=== PATIENT | female | born 1960 | race Caucasian/White ===

== ENCOUNTER 2024-07-14 13:50 | Day surgery (SDC) | payer MEDICARE, OTHER ==
[2024-07-14] MEDS ORDERED: Depo-Medrol 40 MG/ML IM ONE (13:51)
[2024-07-14] MEDS ORDERED: BUPIVACAINE 0.5% VIAL IJ ONE (13:51)
[2024-07-14] MEDS ORDERED: propofoL IV ONE (15:17)
--- NOTE | 2024-07-14 17:02 | XRAY ---
Indication: Left hip and bilateral greater trochanter bursa injection. Intraoperative fluoroscopy provided for 19 seconds. 3 digital spot image submitted for interpretation demonstrates needle tips projecting lateral to left femur neck and left/right greater trochanters. Small amount of contrast injected for all needle tip placement. Correlate with intraoperative findings/report.
--- NOTE | 2024-07-14 17:05 | XRAY ---
19 seconds of fluoroscopy was used in surgery for a left intra-articular hip and bilateral greater trochanteric bursa injection.
== END 2024-07-14 16:05 | disposition home or self-care (01) ==
LOC: SDC-PAIN 13:50
PROVIDERS: ATTEND Psychiatry & Neurology Pain Medicine
DX: M16.12 Unilateral primary osteoarthritis, left hip (principal)
CPT/HCPCS: 20610; 73521; 77002; J2704; Q9966

== ENCOUNTER 2025-01-18 09:41 | Observation (INO) | payer MEDICARE, OTHER ==
--- NOTE | 2025-01-18 10:21 | ERPHSYRPT ---
- History of Present Illness Time Seen by Provider: 01/18/25 10:10 Historian: patient Exam Limitations: no limitations Patient Subjective Stated Complaint: PT. STATES, "I'VE BEEN seeing [facility] UNDER DR. Joni DENNIS. I was having some chest pains and she ran some tests, she didn't like my ekg or the swelling inmy legs, she scheduled me for a stress test in January and started me on Isosorbide daily. Also my lt carotid > 50% blocked. However, I've been batteling colette horses in my legs for a week. This morning I woke up feeling kind of dizzy and nauseated with numbness and tingling in my left arm. Some chest discomfort on the left and in the middle of back." Triage Nursing Assessment: Pt. arrives via W/C, A&Ox3, Skin P/W/D, Resp. even unlabored., No edema noted. Able to move all four extremeties, No neuro defecits. Physician History: Patient is a 64-year-old female former smoker with history of glaucoma angina cardiac dysrhythmia hypertension hyperlipidemia, left carotid stenosis GERD fibromyalgia presents to our ED for evaluation of left-sided chest pain radiating to her back associated with dizziness and nausea. Feels her arms are tingling. Patient advises she has been experiencing leg cramps also. Symptoms are progressive. Symptoms are moderate in intensity. No specific worsening or improving factors. at bedside. They voiced no other complaints or concerns at this time. Portions of this note were created with voice recognition technology. There may be grammatical, spelling, punctuation or sound alike errors Timing/Duration: today Activities at Onset: none Quality: aching Location: substernal Chest Pain Radiation: arm, back Severity of Pain-Max: moderate Severity of Pain-Current: mild Modifying Factors: Improves With: nothing Associated Symptoms: nausea, dizziness Prior Chest Pain/Cardiac Workup: no prior chest pain Nitro Today/Relief: no nitro taken today Aspirin Treatment Today: no aspirin today Allergies/Adverse Reactions: Penicillins Allergy (Severe, Verified 01/18/25 10:52) levofloxacin [From Levaquin] Allergy (Verified 03/12/13 19:29) redness, swelling at iv site mold Allergy (Verified 01/18/25 11:45) Yeast Allergy (Verified 01/18/25 11:45) clindamycin Adverse Reaction (Verified 01/18/25 10:52) Itching ethyl alcohol [From Nozin Nasal Hat Blocking Operator] Adverse Reaction (Verified 01/18/25 11:45) lisinopril Adverse Reaction (Verified 01/18/25 11:45) metronidazole [From Flagyl] Adverse Reaction (Verified 01/18/25 11:03) polymyxin B Adverse Reaction (Verified 01/18/25 11:45) tobramycin Adverse Reaction (Verified 01/18/25 11:45) Home Medications: Aspirin 81 mg PO DAILY 01/18/25 [History] Bimatoprost 0.01% [Lumigan 0.01% 2.5 ml] 2.5 ml OP HS 01/18/25 [History] Hypromellose [Systane Gel] 10 gm OP HS 01/18/25 [History] Isosorbide Mononitrate 30 mg [Imdur 30 MG] 15 mg PO DAILY 01/18/25 [History] Lansoprazole 15 mg PO DAILY PRN PRN 01/18/25 [History] Loratadine [Allergy Relief] 10 mg PO HS 01/18/25 [History] Spironolactone 100 mg PO BID 01/18/25 [History] estradioL [Estradiol] 1 gm VAG DIRECTIONS UNKNOWN 01/18/25 [History] estradioL [Estradiol] 1 mg PO DAILY 01/18/25 [History] Hx Tetanus, Diphtheria Vaccination/Date Given: Yes Hx Influenza Vaccination/Date Given: No Hx Pneumococcal Vaccination/Date Given: No Travel Risk - International Travel Have you traveled outside of the country in past 3 weeks: No - Emerging Infectious Disease Are you exhibiting symptoms associated with any current EIDs: No - Review of Systems All Other Systems: Reviewed and Negative - Past Medical History Pertinent Past Medical History: Yes Neurological History: No Pertinent History ENT History: Glaucoma Cardiac History: Angina, Arrhythmia, High Cholesterol, Hypertension Respiratory History: Pneumonia Endocrine Medical History: No Pertinent History Musculoskeletal History: Fibromyalgia GI Medical History: GERD History: No Pertinent History Psycho-Social History: No Pertinent History Female Reproductive Disorders: No Pertinent History - Past Surgical History Past Surgical History: Yes Neuro Surgical History: No Pertinent History Cardiac: No Pertinent History Respiratory: No Pertinent History Gastrointestinal: Cholecystectomy Genitourinary: No Pertinent History Musculoskeletal: No Pertinent History Female Surgical History: Hysterectomy Other Surgical History: tonsillectomy - Social History Smoking Status: Former smoker Exposure to second hand smoke: No Drug Use: none - Social Determinants of Health Will the patient participate in the screening: Declined to provide - Nursing Vital Signs Nursing Vital Signs: Initial Vital Signs Temperature 97.9 F 01/18/25 09:41 Pulse Rate 89 01/18/25 09:41 Respiratory Rate 18 01/18/25 09:41 Blood Pressure 157/87 01/18/25 09:41 O2 Sat by Pulse Oximetry 99 01/18/25 09:41 Pain Scale Pain Intensity 4 - Physical Exam General Appearance: no apparent distress, alert Eye Exam: PERRL/EOMI, eyes nml inspection Ears, Nose, Throat Exam: normal ENT inspection, moist mucous membranes Neck Exam: normal inspection, full range of motion Respiratory Exam: normal breath sounds, lungs clear, airway intact, No respiratory distress Cardiovascular Exam: regular rate/rhythm, normal heart sounds Gastrointestinal/Abdomen Exam: soft, No tenderness, No mass Back Exam: normal inspection, No CVA tenderness, No vertebral tenderness Extremity Exam: normal inspection, normal range of motion Neurologic Exam: alert, oriented x 3, cooperative, normal mood/affect, sensation nml, No motor deficits Skin Exam: normal color, warm, dry Lymphatic Exam: No adenopathy SpO2 Interpretation: normal SpO2: 99 O2 Delivery: Room Air - Course Nursing assessment & vital signs reviewed: Yes EKG Interpreted by Me: RATE ([id number]), Sinus Rhythm, NORMAL AXIS, NORMAL INTERVALS, NORMAL QRS - Radiology Exams Chest X-ray Interpretation: Teleradiologist Report (Normal heart lungs and bony thorax) Ordered Tests: Active Orders 24 hr Category Date Time Status Service Desk Specialist STAT Care 01/18/25 10:15 Active EKG-ER Only STAT Care 01/18/25 10:14 Active IV Insertion STAT Care 01/18/25 10:14 Active Pulse Oximetry (ED) STAT Care 01/18/25 10:14 Active CHEST 1 VIEW (PORTABLE) Stat Exams 01/18/25 11:58 Completed CBC W DIFF Stat Lab 01/18/25 10:15 Completed CMP Stat Lab 01/18/25 10:15 Completed D-DIMER QUANTITATIVE Stat Lab 01/18/25 10:15 Completed MAGNESIUM Stat Lab 01/18/25 10:15 Completed NT PRO BNPII Stat Lab 01/18/25 10:15 Completed TROPONIN Q4H Lab 01/18/25 10:15 Completed TROPONIN Q4H Lab 01/18/25 13:15 Received TROPONIN Q4H Lab 01/18/25 18:15 Ordered UA W/RFX UR CULTURE Stat Lab 01/18/25 10:15 Completed Transfer Order Routine Transfer 01/18/25 Ordered Medication Summary Discontinued Medications Generic Name Dose Route Start Last Admin Trade Name Freq PRN Reason Stop Dose Admin Aspirin 324 mg 01/18/25 10:23 01/18/25 10:40 Aspirin 81 Mg Tab.Chew PO 01/18/25 10:24 324 mg STAT ONE Administration Aspirin Confirm 01/18/25 10:39 Aspirin 81 Mg Tab.Chew Administered 01/18/25 10:40 Dose 324 mg .ROUTE .STK-MED ONE Acetaminophen 100 mls @ 400 mls/hr 01/18/25 12:49 01/18/25 13:22 Ofirmev IV 01/18/25 13:03 Infused STAT ONE Infusion Acetaminophen Confirm 01/18/25 13:03 Ofirmev Administered 01/18/25 13:04 Dose 100 mls @ ud IV .STK-MED ONE Nitroglycerin 1 gm 01/18/25 10:23 01/18/25 10:40 Nitroglycerin 1 Gm Packet TOP 01/18/25 10:24 1 gm STAT ONE Administration Nitroglycerin Confirm 01/18/25 10:40 Nitroglycerin 1 Gm Packet Administered 01/18/25 10:41 Dose 1 gm .ROUTE .STK-MED ONE Lab/Rad Data: Laboratory Result Diagrams 01/18/25 10:15 01/18/25 10:15 Laboratory Results 01/18/25 01/18/25 01/18/25 Range/Units Unknown 10:15 10:15 WBC (3.98-10.04) x10^3/uL RBC (3.93-5.22) x10^6/uL Hgb (11.2-15.7) g/dL Hct (34.1-44.9) % MCV (79.4-94.8) fL MCH (25.6-32.2) pg MCHC (32.2-35.5) g/dL RDW (11.7-14.4) % Plt Count (182-369) x10^3/uL MPV (9.4-12.3) fL Gran % (34.0-71.1) % Immature Gran % (Auto) (0.001-0.429) % Nucleat RBC Rel Count (0.00-0.2) % Eos # (Auto) (0.04-0.36) x10^3/uL Immature Gran # (Auto) (0.001-0.031) x10^3u/L Absolute Lymphs (auto) (1.18-3.74) x10^3/uL Absolute Monos (auto) (0.24-0.86) x10^3/uL Absolute Nucleated RBC (0.00-0.012) x10^3u/L Lymphocytes % (19.3-51.7) % Monocytes % (4.7-12.5) % Eosinophils % (0.7-5.8) % Basophils % (0.1-1.2) % Absolute Granulocytes (1.56-6.13) x10^3/uL Basophils # (0.01-0.08) x10^3/uL D-Dimer (0.0-0.50) mg/L Sodium (135-145) mmol/L Potassium (3.5-5.1) mmol/L Chloride (98-107) mmol/L Carbon Dioxide (22-30) mmol/L Anion Gap (5-15) MEQ/L BUN (7-17) mg/dL Creatinine (0.52-1.04) mg/dL Estimated GFR ML/MIN Glucose (74-106) mg/dL Calcium (8.4-10.2) mg/dL Magnesium (1.6-2.3) mg/dL Total Bilirubin (0.2-1.3) mg/dL AST (14-36) U/L ALT (0-35) U/L Alkaline Phosphatase (38-126) U/L Troponin I < 0.012 (0.000-0.033) ng/mL NT-Pro-B Natriuret Pep (<300) pg/mL Serum Total Protein (6.3-8.2) g/dL Albumin (3.5-5.0) g/dL Urine Color Yellow (Yellow) Urine Appearance Clear (Clear) Urine pH 7.0 (4.6-8.0) Ur Specific Isom <=1.005 (1.005-1.030) Urine Protein Negative (Negative) Urine Glucose (UA) Negative (Negative) mg/dL Urine Ketones Negative (Negative) Urine Blood Negative (Negative) Urine Nitrite Negative (Negative) Urine Bilirubin Negative (Negative) Urine Urobilinogen 0.2 (0.2) mg/dL Ur Leukocyte Esterase Negative (Negative) U Hyaline Cast (Auto) NONE SEEN (0-2) /LPF Urine Microscopic RBC 0-2 (0-5) /HPF Urine Microscopic WBC 0-2 (0-5) /HPF Ur Epithelial Cells None Seen (None Seen) /HPF Urine Bacteria None Seen (None Seen) /HPF Urine Culture Reflexed NO (NO) Influenza Type A Ag NEGATIVE (NEGATIVE) Influenza Type B Ag NEGATIVE (NEGATIVE) RSV (PCR) NEGATIVE (NEGATIVE) SARS-CoV-2 (PCR) NEGATIVE (NEGATIVE) Slides for Path Review 01/18/25 01/18/25 01/18/25 Range/Units 10:15 10:15 10:15 WBC 16.5 H (3.98-10.04) x10^3/uL RBC 4.04 (3.93-5.22) x10^6/uL Hgb 12.7 (11.2-15.7) g/dL Hct 38.1 (34.1-44.9) % MCV 94.3 (79.4-94.8) fL MCH 31.4 (25.6-32.2) pg MCHC 33.3 (32.2-35.5) g/dL RDW 13.0 (11.7-14.4) % Plt Count 292 (182-369) x10^3/uL MPV 12.6 H (9.4-12.3) fL Gran % 68.3 (34.0-71.1) % Immature Gran % (Auto) 0.9 H (0.001-0.429) % Nucleat RBC Rel Count 0.0 (0.00-0.2) % Eos # (Auto) 0.25 (0.04-0.36) x10^3/uL Immature Gran # (Auto) 0.15 H (0.001-0.031) x10^3u/L Absolute Lymphs (auto) 3.02 (1.18-3.74) x10^3/uL Absolute Monos (auto) 1.69 H (0.24-0.86) x10^3/uL Absolute Nucleated RBC 0.00 (0.00-0.012) x10^3u/L Lymphocytes % 18.3 L (19.3-51.7) % Monocytes % 10.3 (4.7-12.5) % Eosinophils % 1.5 (0.7-5.8) % Basophils % 0.7 (0.1-1.2) % Absolute Granulocytes 11.25 H (1.56-6.13) x10^3/uL Basophils # 0.12 H (0.01-0.08) x10^3/uL D-Dimer 0.39 (0.0-0.50) mg/L Sodium 136 (135-145) mmol/L Potassium 4.7 (3.5-5.1) mmol/L Chloride 101 (98-107) mmol/L Carbon Dioxide 26 (22-30) mmol/L Anion Gap 12.8 (5-15) MEQ/L BUN 21 H (7-17) mg/dL Creatinine 0.82 (0.52-1.04) mg/dL Estimated GFR 79.3 ML/MIN Glucose 95 (74-106) mg/dL Calcium 10.2 (8.4-10.2) mg/dL Magnesium 1.9 (1.6-2.3) mg/dL Total Bilirubin 0.20 (0.2-1.3) mg/dL AST 19 (14-36) U/L ALT 13 (0-35) U/L Alkaline Phosphatase 63 (38-126) U/L Troponin I (0.000-0.033) ng/mL NT-Pro-B Natriuret Pep 95.8 (<300) pg/mL Serum Total Protein 7.4 (6.3-8.2) g/dL Albumin 4.3 (3.5-5.0) g/dL Urine Color (Yellow) Urine Appearance (Clear) Urine pH (4.6-8.0) Ur Specific Isom (1.005-1.030) Urine Protein (Negative) Urine Glucose (UA) (Negative) mg/dL Urine Ketones (Negative) Urine Blood (Negative) Urine Nitrite (Negative) Urine Bilirubin (Negative) Urine Urobilinogen (0.2) mg/dL Ur Leukocyte Esterase (Negative) U Hyaline Cast (Auto) (0-2) /LPF Urine Microscopic RBC (0-5) /HPF Urine Microscopic WBC (0-5) /HPF Ur Epithelial Cells (None Seen) /HPF Urine Bacteria (None Seen) /HPF Urine Culture Reflexed (NO) Influenza Type A Ag (NEGATIVE) Influenza Type B Ag (NEGATIVE) RSV (PCR) (NEGATIVE) SARS-CoV-2 (PCR) (NEGATIVE) Slides for Path Review YES - Progress Progress: improved Air Movement: good Progress Note: Patient's heart score is 4. 01/18/25 12:49 Patient complained of a headache likely secondary to nitro paste application. IV Tylenol/Ofirmev ordered for headache. 01/18/25 13:12 Case discussed with hospitalist Dr. Parks depth admission to observation at 1:06 PM. Plan of care discussed with patient. She agrees to admission at [facility] for further evaluation and treatment. Patient is a 64-year-old female former smoker with history of glaucoma angina cardiac dysrhythmia hypertension hyperlipidemia, left carotid stenosis GERD fibromyalgia presents to our ED for evaluation of left-sided chest pain radiating to her back associated with dizziness and nausea. Physical exam nonremarkable. No active muscle cramping during my evaluation. Laboratory workup shows negative D-dimer. Chest x-ray shows no acute findings. Patient does have a significant leukocytosis. At this point there is no clear etiology for the leukocytosis. However patient will require hospitalization for further evaluation and treatment in light of elevated heart score. Plan of care discussed with patient. She agrees to admission at [facility] for further evaluation and treatment. History obtained from patient. Differential diagnosis includes acute coronary syndrome, PE, pneumothorax, aortic dissection Complexity of problems addressed is moderate acute complicated. No critical care time. Complex of data reviewed and analyzed is extensive. Test ordered chest reviewed results analyzed interpreted and correlated clinically with history and physical exam. Risk of complication and or risk of morbidity/mortality of patient management is high. Patient requires hospitalization for further evaluation and treatment. Vital stable. Time spent admit patient is approximately 15 minutes. Plan of care established for shared decision making. No social determinants of health present to impede follow-up. Portions of this note were created with voice recognition technology. There may be grammatical, spelling, punctuation or sound alike errors . 01/18/25 13:30 Blood Culture(s) Obtained: No Antibiotics given: No Counseled pt/family regarding: lab results, diagnosis, rad results - Departure Departure Disposition: Observation Clinical Impression: Chest pain, Acute coronary syndrome, Leukocytosis Condition: Stable Critical Care Time: No Referrals: JACQUELIN CONTRERAS NP [Primary Care Provider, [facility]] - Follow up/PCP as directed
[2025-01-18] MEDS ORDERED: BABY ASPIRIN 81 MG CHEW ONE (10:39)
[2025-01-18] MEDS: BABY ASPIRIN 81 MG CHEW PO ONE (10:40)
[2025-01-18] MEDS: NITRO-BID 2% UD PACKETS TOP ONE (10:40)
[2025-01-18] MEDS ORDERED: NITRO-BID 2% UD PACKETS ONE (10:40)
[2025-01-18 10:41] LABS: BASOPHIL % 0.7 % (0.1-1.2); Basophil (Absolute #) 0.12 x10^3/uL (0.01-0.08); Eosinophil (Absolute #) 0.25 x10^3/uL (0.04-0.36); Hematocrit 38.1 % (34.1-44.9); Hemoglobin 12.7 g/dL (11.2-15.7); IMMATURE GRAN # 0.15 x10^3u/L (0.001-0.031); IMMATURE GRAN % 0.9 % (0.001-0.429); Lymphocyte (Absolute #) 3.02 x10^3/uL (1.18-3.74); Mean Corpuscular Hemoglobin 31.4 pg (25.6-32.2); Mean Corpuscular Hgb Concent. 33.3 g/dL (32.2-35.5); Monocyte (Absolute #) 1.69 x10^3/uL (0.24-0.86); NUCLEATED RBC # 0.00 x10^3u/L (0.00-0.012); NUCLEATED RBC % 0.0 % (0.00-0.2); Platelet Count 292 x10^3/uL (182-369); Red Blood Count 4.04 x10^6/uL (3.93-5.22); White Blood Count 16.5 x10^3/uL (3.98-10.04)
[2025-01-18 10:54] LABS: Glucose, Urine Negative (Negative); Protein,Urine Dip Negative (Negative); RBC 0-2 /HPF (0-5); WBC 0-2 /HPF (0-5)
[2025-01-18 11:17] LABS: INFLUENZA A NEGATIVE (NEGATIVE); INFLUENZA B NEGATIVE (NEGATIVE); RESPIRATORY SYNCTIAL VIRUS NEGATIVE (NEGATIVE); SARS-CoV-2 Xpert Express NEGATIVE (NEGATIVE)
[2025-01-18 11:24] LABS: Slide Review 1 YES
[2025-01-18 11:32] LABS: Calcium 10.2 mg/dL (8.4-10.2); Carbon Dioxide 26.0 mmol/L (22-30); Creatinine 1 0.82 mg/dL (0.52-1.04); EST GLOMERULAR FILTRATION RATE 79.3 ML/MIN; Glucose 95.0 mg/dL (74-106); NT PRO BNPII 95.8 pg/mL (<300); Potassium 4.7 mmol/L (3.5-5.1); SGOT/AST 19.0 U/L (14-36); SGPT/ALT 13.0 U/L (0-35); Total Protein 7.4 g/dL (6.3-8.2)
--- NOTE | 2025-01-18 12:33 | XRAY ---
Indication: Pain. Comparison: December 05, 2023 Portable chest again demonstrates normal heart, lungs, and bony thorax with incidental tiny right apical calcified granuloma.
[2025-01-18] MEDS ORDERED: OFIRMEV 100 ML IV ONE (13:03)
[2025-01-18] MEDS: OFIRMEV 100 ML IV ONE (13:06)
--- NOTE | 2025-01-18 14:45 | PCM.HP ---
History of Present Illness - Chief Complaint Chief Complaint: Chest pain, acute coronary syndrome Date: 01/18/25 History of Present Illness: is a 64 year old female 64-year-old female, former smoker, with past medical history significant for glaucoma, angina, cardiac dysrhythmia, hypertension, hyperlipidemia, known left carotid stenosis >50%, GERD, and fibromyalgia. She presented to the ED with progressive left-sided chest pain radiating to her back, associated with dizziness, nausea, and tingling in both upper extremities. She additionally reported recurrent leg cramps over the past week. Her symptoms were of moderate intensity, without clear provoking or relieving factors other than nitro. She follows with [facility] under Dr. Joni Horn; at a recent outpatient visit she had an abnormal EKG and lower extremity swelling, was started on daily isosorbide, and is scheduled for a stress test in January. Patient also endorses muscle cramps. On arrival, vital signs were stable. EKG performed in the ED revealed normal sinus rhythm at 87 bpm, with normal axis, intervals, and QRS duration per ED physician read. Chest x-ray showing no acute cardiopulmonary process. Laboratory studies demonstrated leukocytosis,with WBC at 16.5 though no fever or infectious source was evident. UA and CXR negative. Respiratory panel negative. D-dimer was negative, lowering suspicion for venous thromboembolism. Troponin x 2 WNL. BNP WNL. Electrolytes were reviewed given history of cramping, but no acute derangements were documented at time of evaluation. Given her chest pain presentation in the context of multiple cardiovascular risk factors and known carotid stenosis, her HEART score is elevated, and admission for observation and further workup was recommended. Patient received nitro and ASA in ED. - Review of Systems Constitutional: Fatigue Eyes: No Symptoms Ears, Nose, & Throat: No Symptoms Respiratory: No Symptoms Cardiac: Chest Pain Abdominal/Gastrointestinal: Nausea Genitourinary Symptoms: No Symptoms Musculoskeletal: Back Pain Skin: No Symptoms Neurological: Dizziness Psychological: No Symptoms Endocrine: No Symptoms Hematologic/Lymphatic: No Symptoms Immunological/Allergic: No Symptoms Medications & Allergies Home Medications: Home Medication List Aspirin 81 mg PO DAILY 01/18/25 [History Confirmed 01/18/25] Bimatoprost 0.01% [Lumigan 0.01% 2.5 ml] 2.5 ml OP HS 01/18/25 [History Confirmed 01/18/25] Hypromellose [Systane Gel] 10 gm OP HS 01/18/25 [History Confirmed 01/18/25] Isosorbide Mononitrate 30 mg [Imdur 30 MG] 15 mg PO DAILY 01/18/25 [History Confirmed 01/18/25] Lansoprazole 15 mg PO DAILY PRN PRN 01/18/25 [History Confirmed 01/18/25] Loratadine [Allergy Relief] 10 mg PO HS 01/18/25 [History Confirmed 01/18/25] Spironolactone 50 mg PO BID 01/18/25 [History Confirmed 01/18/25] estradioL [Estradiol] 1 gm VAG DIRECTIONS UNKNOWN 01/18/25 [History Confirmed 01/18/25] estradioL [Estradiol] 1 mg PO DAILY 01/18/25 [History Confirmed 01/18/25] Allergies/Adverse Reactions: Allergies Allergy/AdvReac Type Severity Reaction Status Date / Time Penicillins Allergy Severe Verified 01/18/25 14:37 levofloxacin [From Levaquin] Allergy redness, Verified 01/18/25 14:37 swelling at iv site mold Allergy Verified 01/18/25 14:37 sulfamethoxazole Allergy Verified 01/18/25 14:37 Yeast Allergy Verified 01/18/25 14:37 clindamycin AdvReac Itching Verified 01/18/25 14:37 ethyl alcohol AdvReac Verified 01/18/25 14:37 [From Nozin Nasal [employer] Mixer] lisinopril AdvReac Verified 01/18/25 14:37 metronidazole [From Flagyl] AdvReac Verified 01/18/25 14:37 polymyxin B AdvReac Verified 01/18/25 14:37 tobramycin AdvReac Verified 01/18/25 14:37 - Past Medical History Past Medical History: Yes Neurological History: No Pertinent History ENT History: Other Cardiac History: Angina, Arrhythmia, High Cholesterol, Hypertension Respiratory History: Pneumonia Endocrine Medical History: No Pertinent History Musculoskelatal History: Fibromyalgia GI Medical History: Diverticulitis, Diverticulosis, GERD, Gallbladder Disease History: No Pertinent History Pyscho-Social History: No Pertinent History Reproductive Disorders: Fibroids, Other Comment: HTN in eyes. Heart Palpitations. bladder sling /prolapsed vagina - Past Surgical History Past Surgical History: Yes Neuro Surgical History: No Pertinent History Cardiac History: No Pertinent History Respiratory Surgery: No Pertinent History GI Surgical History: Cholecystectomy Genitourinary Surgical Hx: No Pertinent History Musculskeletal Surgical Hx: No Pertinent History Female Surgical History: Hysterectomy Other Surgical History: tonsillectomy Significant Family History: heart disease, cancer, diabetes, hypertension, stroke - Social History Smoking Status: Former smoker Exposure to second hand smoke: No Alcohol: None Drug Use: none - Social Determinants of Health Will the patient participate in the screening: Yes Do you worry about a steady place to live?: No Do you have any problems with any of the following?: No known problems In the past 12 months,have you had to go without utilities?: No Have you or anyone in your house had to go without enough: No Transportation Issues: No Has anyone in your support network made you feel unsafe?: No Does the patient want assistance with any of the above?: No - Physical Exam Vital Signs: Vital Signs - 24 hr Temp Pulse Resp BP BP BP Pulse Ox 01/18/25 13:58 96.7 F 70 18 115/58 94 L 01/18/25 13:35 99 01/18/25 13:00 76 11 L 122/77 96 01/18/25 12:30 84 16 114/68 97 01/18/25 12:00 72 14 128/77 96 01/18/25 11:30 76 20 124/60 97 01/18/25 11:00 73 16 125/82 97 01/18/25 10:41 80 18 142/77 98 01/18/25 10:30 81 20 142/77 97 01/18/25 10:14 98 01/18/25 10:00 77 21 154/87 96 01/18/25 09:41 97.9 F 89 18 157/87 99 General Appearance: no apparent distress Neurologic Exam: alert, oriented x 3, cooperative Eye Exam: PERRL/EOMI Ears, Nose, Throat Exam: normal ENT inspection Neck Exam: normal inspection Respiratory Exam: normal breath sounds, lungs clear Cardiovascular Exam: regular rate/rhythm, normal heart sounds Gastrointestinal/Abdomen Exam: soft, normal bowel sounds Pelvic Exam: not done Rectal Exam: deferred Back Exam: normal inspection Extremity Exam: normal inspection Skin Exam: normal color Results - Labs Lab/Micro Results: Lab Results-Last 24 Hours 01/18/25 01/18/25 01/18/25 Range/Units 10:15 10:15 10:15 WBC 16.5 H (3.98-10.04) x10^3/uL RBC 4.04 (3.93-5.22) x10^6/uL Hgb 12.7 (11.2-15.7) g/dL Hct 38.1 (34.1-44.9) % MCV 94.3 (79.4-94.8) fL MCH 31.4 (25.6-32.2) pg MCHC 33.3 (32.2-35.5) g/dL RDW 13.0 (11.7-14.4) % Plt Count 292 (182-369) x10^3/uL MPV 12.6 H (9.4-12.3) fL Gran % 68.3 (34.0-71.1) % Immature Gran % (Auto) 0.9 H (0.001-0.429) % Nucleat RBC Rel Count 0.0 (0.00-0.2) % Eos # (Auto) 0.25 (0.04-0.36) x10^3/uL Immature Gran # (Auto) 0.15 H (0.001-0.031) x10^3u/L Absolute Lymphs (auto) 3.02 (1.18-3.74) x10^3/uL Absolute Monos (auto) 1.69 H (0.24-0.86) x10^3/uL Absolute Nucleated RBC 0.00 (0.00-0.012) x10^3u/L Lymphocytes % 18.3 L (19.3-51.7) % Monocytes % 10.3 (4.7-12.5) % Eosinophils % 1.5 (0.7-5.8) % Basophils % 0.7 (0.1-1.2) % Absolute Granulocytes 11.25 H (1.56-6.13) x10^3/uL Basophils # 0.12 H (0.01-0.08) x10^3/uL D-Dimer 0.39 (0.0-0.50) mg/L Sodium 136 (135-145) mmol/L Potassium 4.7 (3.5-5.1) mmol/L Chloride 101 (98-107) mmol/L Carbon Dioxide 26 (22-30) mmol/L Anion Gap 12.8 (5-15) MEQ/L BUN 21 H (7-17) mg/dL Creatinine 0.82 (0.52-1.04) mg/dL Estimated GFR 79.3 ML/MIN Glucose 95 (74-106) mg/dL Calcium 10.2 (8.4-10.2) mg/dL Magnesium 1.9 (1.6-2.3) mg/dL Total Bilirubin 0.20 (0.2-1.3) mg/dL AST 19 (14-36) U/L ALT 13 (0-35) U/L Alkaline Phosphatase 63 (38-126) U/L Troponin I (0.000-0.033) ng/mL NT-Pro-B Natriuret Pep 95.8 (<300) pg/mL Serum Total Protein 7.4 (6.3-8.2) g/dL Albumin 4.3 (3.5-5.0) g/dL Urine Color (Yellow) Urine Appearance (Clear) Urine pH (4.6-8.0) Ur Specific [place] (1.005-1.030) Urine Protein (Negative) Urine Glucose (UA) (Negative) mg/dL Urine Ketones (Negative) Urine Blood (Negative) Urine Nitrite (Negative) Urine Bilirubin (Negative) Urine Urobilinogen (0.2) mg/dL Ur Leukocyte Esterase (Negative) U Hyaline Cast (Auto) (0-2) /LPF Urine Microscopic RBC (0-5) /HPF Urine Microscopic WBC (0-5) /HPF Ur Epithelial Cells (None Seen) /HPF Urine Bacteria (None Seen) /HPF Urine Culture Reflexed (NO) Influenza Type A Ag (NEGATIVE) Influenza Type B Ag (NEGATIVE) RSV (PCR) (NEGATIVE) SARS-CoV-2 (PCR) (NEGATIVE) Slides for Path Review YES 01/18/25 01/18/25 01/18/25 Range/Units 10:15 10:15 13:15 WBC (3.98-10.04) x10^3/uL RBC (3.93-5.22) x10^6/uL Hgb (11.2-15.7) g/dL Hct (34.1-44.9) % MCV (79.4-94.8) fL MCH (25.6-32.2) pg MCHC (32.2-35.5) g/dL RDW (11.7-14.4) % Plt Count (182-369) x10^3/uL MPV (9.4-12.3) fL Gran % (34.0-71.1) % Immature Gran % (Auto) (0.001-0.429) % Nucleat RBC Rel Count (0.00-0.2) % Eos # (Auto) (0.04-0.36) x10^3/uL Immature Gran # (Auto) (0.001-0.031) x10^3u/L Absolute Lymphs (auto) (1.18-3.74) x10^3/uL Absolute Monos (auto) (0.24-0.86) x10^3/uL Absolute Nucleated RBC (0.00-0.012) x10^3u/L Lymphocytes % (19.3-51.7) % Monocytes % (4.7-12.5) % Eosinophils % (0.7-5.8) % Basophils % (0.1-1.2) % Absolute Granulocytes (1.56-6.13) x10^3/uL Basophils # (0.01-0.08) x10^3/uL D-Dimer (0.0-0.50) mg/L Sodium (135-145) mmol/L Potassium (3.5-5.1) mmol/L Chloride (98-107) mmol/L Carbon Dioxide (22-30) mmol/L Anion Gap (5-15) MEQ/L BUN (7-17) mg/dL Creatinine (0.52-1.04) mg/dL Estimated GFR ML/MIN Glucose (74-106) mg/dL Calcium (8.4-10.2) mg/dL Magnesium (1.6-2.3) mg/dL Total Bilirubin (0.2-1.3) mg/dL AST (14-36) U/L ALT (0-35) U/L Alkaline Phosphatase (38-126) U/L Troponin I < 0.012 < 0.012 (0.000-0.033) ng/mL NT-Pro-B Natriuret Pep (<300) pg/mL Serum Total Protein (6.3-8.2) g/dL Albumin (3.5-5.0) g/dL Urine Color Yellow (Yellow) Urine Appearance Clear (Clear) Urine pH 7.0 (4.6-8.0) Ur Specific [place] <=1.005 (1.005-1.030) Urine Protein Negative (Negative) Urine Glucose (UA) Negative (Negative) mg/dL Urine Ketones Negative (Negative) Urine Blood Negative (Negative) Urine Nitrite Negative (Negative) Urine Bilirubin Negative (Negative) Urine Urobilinogen 0.2 (0.2) mg/dL Ur Leukocyte Esterase Negative (Negative) U Hyaline Cast (Auto) NONE SEEN (0-2) /LPF Urine Microscopic RBC 0-2 (0-5) /HPF Urine Microscopic WBC 0-2 (0-5) /HPF Ur Epithelial Cells None Seen (None Seen) /HPF Urine Bacteria None Seen (None Seen) /HPF Urine Culture Reflexed NO (NO) Influenza Type A Ag (NEGATIVE) Influenza Type B Ag (NEGATIVE) RSV (PCR) (NEGATIVE) SARS-CoV-2 (PCR) (NEGATIVE) Slides for Path Review 01/18/25 Range/Units Unknown WBC (3.98-10.04) x10^3/uL RBC (3.93-5.22) x10^6/uL Hgb (11.2-15.7) g/dL Hct (34.1-44.9) % MCV (79.4-94.8) fL MCH (25.6-32.2) pg MCHC (32.2-35.5) g/dL RDW (11.7-14.4) % Plt Count (182-369) x10^3/uL MPV (9.4-12.3) fL Gran % (34.0-71.1) % Immature Gran % (Auto) (0.001-0.429) % Nucleat RBC Rel Count (0.00-0.2) % Eos # (Auto) (0.04-0.36) x10^3/uL Immature Gran # (Auto) (0.001-0.031) x10^3u/L Absolute Lymphs (auto) (1.18-3.74) x10^3/uL Absolute Monos (auto) (0.24-0.86) x10^3/uL Absolute Nucleated RBC (0.00-0.012) x10^3u/L Lymphocytes % (19.3-51.7) % Monocytes % (4.7-12.5) % Eosinophils % (0.7-5.8) % Basophils % (0.1-1.2) % Absolute Granulocytes (1.56-6.13) x10^3/uL Basophils # (0.01-0.08) x10^3/uL D-Dimer (0.0-0.50) mg/L Sodium (135-145) mmol/L Potassium (3.5-5.1) mmol/L Chloride (98-107) mmol/L Carbon Dioxide (22-30) mmol/L Anion Gap (5-15) MEQ/L BUN (7-17) mg/dL Creatinine (0.52-1.04) mg/dL Estimated GFR ML/MIN Glucose (74-106) mg/dL Calcium (8.4-10.2) mg/dL Magnesium (1.6-2.3) mg/dL Total Bilirubin (0.2-1.3) mg/dL AST (14-36) U/L ALT (0-35) U/L Alkaline Phosphatase (38-126) U/L Troponin I (0.000-0.033) ng/mL NT-Pro-B Natriuret Pep (<300) pg/mL Serum Total Protein (6.3-8.2) g/dL Albumin (3.5-5.0) g/dL Urine Color (Yellow) Urine Appearance (Clear) Urine pH (4.6-8.0) Ur Specific [place] (1.005-1.030) Urine Protein (Negative) Urine Glucose (UA) (Negative) mg/dL Urine Ketones (Negative) Urine Blood (Negative) Urine Nitrite (Negative) Urine Bilirubin (Negative) Urine Urobilinogen (0.2) mg/dL Ur Leukocyte Esterase (Negative) U Hyaline Cast (Auto) (0-2) /LPF Urine Microscopic RBC (0-5) /HPF Urine Microscopic WBC (0-5) /HPF Ur Epithelial Cells (None Seen) /HPF Urine Bacteria (None Seen) /HPF Urine Culture Reflexed (NO) Influenza Type A Ag NEGATIVE (NEGATIVE) Influenza Type B Ag NEGATIVE (NEGATIVE) RSV (PCR) NEGATIVE (NEGATIVE) SARS-CoV-2 (PCR) NEGATIVE (NEGATIVE) Slides for Path Review - Radiology Impressions Radiology Exams & Impressions: Radiology Procedures Category Date Time Status CHEST 1 VIEW (PORTABLE) Stat Exams 01/18/25 11:58 Completed ECHO W/2D AND DOPPLER [US] Stat Exams 01/18/25 14:34 Ordered Assessment/Plan (1) Chest pain Current Visit: Yes Status: Acute Assessment & Plan: -Telemetry observation -CXR with no acute findings -High-risk presentation given age, vascular disease, angina history, and carotid stenosis -Initial EKG nonischemic; troponin x2 WNL -BNP WNL -Follows OP with Dr. Joni Horn -Serial troponins, repeat EKGs -Echo -Continue isosorbide -Consider cardiology consult depending on trend and symptoms. -Monitor closely for recurrence or progression Code(s): R07.9 - CHEST PAIN, UNSPECIFIED (2) Leukocytosis Current Visit: Yes Status: Acute Assessment & Plan: -CBC notable for elevated WBC without clear source; patient afebrile, chest x- ray negative for pneumonia, urinalysis negative -COVID/FLU/RSV negative -Repeat CBC with differential in AM. -Monitor for infectious signs; broaden workup if symptoms develop. Code(s): D72.829 - ELEVATED WHITE BLOOD CELL COUNT, UNSPECIFIED (3) Muscle cramps Current Visit: Yes Status: Acute Assessment & Plan: -Patient endorses ongoing leg cramps over one week. -Electrolytes (Na, K, Mg, Ca) were within normal limits. -Encourage hydration and stretching; monitor for medication contributors -TSH, vitamin D, medication review -Provide PRN supportive measures Code(s): R25.2 - CRAMP AND SPASM (4) Carotid stenosis Current Visit: Yes Status: Acute Assessment & Plan: -Per patient report will need to obtain records -Continue risk factor modification -Outpatient vascular follow-up. Code(s): I65.29 - OCCLUSION AND STENOSIS OF UNSPECIFIED CAROTID ARTERY (5) HTN (hypertension) Current Visit: Yes Status: Acute Assessment & Plan: -Continue home antihypertensives; monitor inpatient BP. Code(s): I10 - ESSENTIAL (PRIMARY) HYPERTENSION (6) Angina at rest Current Visit: Yes Status: Acute Assessment & Plan: -Continue outpatient regimen. -Monitor telemetry for arrhythmias. Code(s): I20.89 - OTHER FORMS OF ANGINA PECTORIS (7) GERD (gastroesophageal reflux disease) Current Visit: Yes Status: Acute Assessment & Plan: -continue protonix Code(s): K21.9 - GASTRO-ESOPHAGEAL REFLUX DISEASE WITHOUT ESOPHAGITIS (8) Fibromyalgia Current Visit: Yes Status: Acute Assessment & Plan: -Continue symptomatic management. VTE: Lovenox PPI: Protonix Dispo: 1-2 days Code status: Full Code Plan of care time spent > 40 mins Telemedicine Encounter - Telemedicine Encounter Telemedicine Encounter: "The entirety of this encounter was performed via Telemedicine" This visit was performed using real-time audio and video connection between my location and thepatients locationwith the assistance of a surrogateat the patients location. Written or verbal consent was obtained from the patient/guardian to perform this visit [facility]. Any patient questions regarding the telemedicine interaction were answered.
[2025-01-18] MEDS ORDERED: Zofran 4 MG/2 ML VIAL IV PRN (14:55)
[2025-01-18] MEDS ORDERED: LANSOPRAZOLE 15 MG PO PRN (14:59)
[2025-01-18] MEDS ORDERED: ESTRADIOL VAG SCH (15:00)
[2025-01-18] MEDS ORDERED: Protonix 20MG Tablet PO PRN (15:19)
[2025-01-18] MEDS ORDERED: MEDICATION INTERVENTION MC SCH ×2 (16:00)
[2025-01-18] MEDS: TYLENOL 325 MG PO PRN (18:11)
[2025-01-18] MEDS ORDERED: NON-FORMULARY ITEM (Spironolactone [Spironolactone] 100 MG Tablet) PO SCH (22:00)
[2025-01-18] MEDS ORDERED: HYPROMELLOSE OP SCH (22:00)
[2025-01-18] MEDS: CLARITIN 10 MG PO SCH (22:37)
[2025-01-18] MEDS: Aldactone 25 MG PO SCH (22:37)
[2025-01-18] MEDS: LUMIGAN 0.01% 2.5 ML OP SCH (22:37)
[2025-01-19 05:42] LABS: Hematocrit 36.8 % (34.1-44.9); Hemoglobin 12.0 g/dL (11.2-15.7); Mean Corpuscular Hemoglobin 30.8 pg (25.6-32.2); Mean Corpuscular Hgb Concent. 32.6 g/dL (32.2-35.5); Platelet Count 265 x10^3/uL (182-369); Red Blood Count 3.89 x10^6/uL (3.93-5.22); White Blood Count 13.3 x10^3/uL (3.98-10.04)
[2025-01-19 06:08] LABS: Calcium 9.4 mg/dL (8.4-10.2); Carbon Dioxide 25.0 mmol/L (22-30); Creatinine 1 0.82 mg/dL (0.52-1.04); EST GLOMERULAR FILTRATION RATE 79.3 ML/MIN; Glucose 88.0 mg/dL (74-106); Potassium 4.9 mmol/L (3.5-5.1); SGOT/AST 17.0 U/L (14-36); SGPT/ALT 11.0 U/L (0-35); Total Protein 6.7 g/dL (6.3-8.2)
[2025-01-19 06:13] LABS: Cholesterol 179.0 mg/dL (50-200); LDL, DIRECT 67.0 mg/dL (30-100); TRIGLYCERIDE 233.0 mg/dL (30-150)
[2025-01-19 06:25] LABS: Total Cells Counted 100; Toxic Granulation 1+
[2025-01-19 07:05] VITALS: RESP 16
[2025-01-19] MEDS: Protonix 40MG Tablet PO SCH (09:39)
[2025-01-19] MEDS: ECOTRIN 81 MG PO SCH (09:41)
[2025-01-19] MEDS: ENOXAPARIN SODIUM SQ SCH (09:50)
[2025-01-19] MEDS: Imdur 30 MG PO SCH (09:51)
[2025-01-19] MEDS: ESTRACE 1 MG PO SCH (09:52)
[2025-01-19] MEDS ORDERED: NON-FORMULARY ITEM (Aspirin [Aspirin] 81 MG Tablet) PO SCH (10:00)
[2025-01-19 11:40] VITALS: BP 124/77; PULSE 76; TEMP 98; O2SAT 98
--- NOTE | 2025-01-19 13:13 | PCM.DS ---
Discharge Summary Date of Admission: 01/18/25 13:34 Date of Discharge: 01/19/25 Admitting Physician: WALDO CHO MD Primary Care Provider: JACQUELIN CONTRERAS Allergies Allergies Penicillins Allergy (Severe, Verified 01/18/25 14:37) levofloxacin [From Levaquin] Allergy (Verified 01/18/25 14:37) redness, swelling at iv site redness, burning, rash mold Allergy (Verified 01/18/25 14:37) sulfamethoxazole Allergy (Verified 01/18/25 14:37) Yeast Allergy (Verified 01/18/25 14:37) clindamycin Adverse Reaction (Verified 01/18/25 14:37) Itching ethyl alcohol [From [employer] Nitroglycerin Distributor] Adverse Reaction (Verified 01/18/25 14:37) itching lisinopril Adverse Reaction (Verified 01/18/25 14:37) cough metronidazole [From Flagyl] Adverse Reaction (Verified 01/18/25 14:37) numbness/tingling in lips itching polymyxin B Adverse Reaction (Verified 01/18/25 14:37) eye irritation tobramycin Adverse Reaction (Verified 01/18/25 14:37) eye irritation Hospital Summary - Hospital Course Hospital Course: Ms. Rivera is a 64-year-old female, former smoker, with a past medical history of glaucoma, angina, cardiac dysrhythmia, hypertension, hyperlipidemia, known left carotid stenosis >50%, GERD, and fibromyalgia. She presented to the emergency department with progressive left-sided chest pain radiating to the back, associated with dizziness, nausea, and tingling in both upper extremities. She additionally endorsed recurrent leg cramps over the past week. Her pain was of moderate intensity without clear provoking or relieving factors aside from nitroglycerin. She follows with [facility] under Dr. Joni Horn and was recently noted to have an abnormal EKG and leg swelling in the outpatient setting, prompting initiation of isosorbide and scheduling of a stress test in January. On arrival, her vital signs were stable. Initial ED EKG demonstrated normal sinus rhythm at 87 bpm with no ischemic changes. Chest radiograph showed no acute cardiopulmonary process. Laboratory studies revealed leukocytosis with WBC 16.5 but no fever or infectious source; urinalysis and chest x-ray were negative, and respiratory viral panel was negative. D-dimer was also negative, lowering suspicion for thromboembolic disease. Serial troponins were within normal range, and BNP was normal. Electrolytes were reviewed in the context of muscle cramping but showed no significant derangements. She was treated with nitroglycerin and aspirin in the ED with improvement of chest pain. Repeat EKGs and three serial troponins remained negative. Given her cardiovascular risk profile and known carotid stenosis, she was admitted for observation on telemetry and underwent serial cardiac evaluation. No recurrence of chest pain was noted during hospitalization. The patient is clinically stable at discharge and will follow up with her energy scheduler as scheduled for outpatient stress testing. Discharge Note New Diagnosis: Chest pain New Medications: Magnesium oxide 400mg daily/Bcomplex vitamins daily Follow Up: Cardiology/PCP Results pending: Echo I spent 35 minutes [id number] with the patient on the day of discharge performing discharge exam, discussing hospital stay and discharge instructions with patient and caregivers, preparation of discharge records, prescriptions & referral forms and addressing any questions/concerns the patient had as documented above. - Vitals & Intake/Output Vital Signs: Vital Signs Temperature 98.0 F 01/19/25 11:39 Pulse Rate 76 01/19/25 11:39 Respiratory Rate 16 01/19/25 11:39 Blood Pressure 124/77 01/19/25 11:39 O2 Sat by Pulse Oximetry 98 01/19/25 11:39 Intake & Output: Intake & Output 01/17/25 01/18/25 01/19/25 01/20/25 11:59 11:59 11:59 11:59 Intake Total 1200 240 Balance 1200 240 Weight 83.6 kg 84.6 kg - Lab Result Diagrams: 01/19/25 05:13 01/19/25 05:13 Lab Results-Last 24 Hrs: Lab Results-Last 24 Hours 01/18/25 01/18/25 01/18/25 Range/Units 13:15 13:15 13:15 WBC (3.98-10.04) x10^3/uL RBC (3.93-5.22) x10^6/uL Hgb (11.2-15.7) g/dL Hct (34.1-44.9) % MCV (79.4-94.8) fL MCH (25.6-32.2) pg MCHC (32.2-35.5) g/dL RDW (11.7-14.4) % Plt Count (182-369) x10^3/uL MPV (9.4-12.3) fL Segmented Neutrophils (34.0-71.1) % Lymphocytes (Manual) (19.3-51.7) % Monocytes (Manual) (4.7-12.5) % Toxic Granulation Platelet Estimate (NORMAL) RBC Morphology Sodium (135-145) mmol/L Potassium (3.5-5.1) mmol/L Chloride (98-107) mmol/L Carbon Dioxide (22-30) mmol/L Anion Gap (5-15) MEQ/L BUN (7-17) mg/dL Creatinine (0.52-1.04) mg/dL Estimated GFR ML/MIN Glucose (74-106) mg/dL Calcium (8.4-10.2) mg/dL Total Bilirubin (0.2-1.3) mg/dL AST (14-36) U/L ALT (0-35) U/L Alkaline Phosphatase (38-126) U/L Troponin I < 0.012 (0.000-0.033) ng/mL Serum Total Protein (6.3-8.2) g/dL Albumin (3.5-5.0) g/dL Triglycerides (30-150) mg/dL Cholesterol (50-200) mg/dL LDL Cholesterol (30-100) mg/dL HDL Cholesterol (40-60) mg/dL Heart Disease Risk Ratio 25-OH Vitamin D Total 68.8 (30-100) ng/mL TSH 3rd Generation 2.053 (0.470-4.680) mIU/L 01/18/25 01/19/25 01/19/25 Range/Units 18:07 05:13 05:13 WBC 13.3 H (3.98-10.04) x10^3/uL RBC 3.89 L (3.93-5.22) x10^6/uL Hgb 12.0 (11.2-15.7) g/dL Hct 36.8 (34.1-44.9) % MCV 94.6 (79.4-94.8) fL MCH 30.8 (25.6-32.2) pg MCHC 32.6 (32.2-35.5) g/dL RDW 13.0 (11.7-14.4) % Plt Count 265 (182-369) x10^3/uL MPV 12.4 H (9.4-12.3) fL Segmented Neutrophils 67 (34.0-71.1) % Lymphocytes (Manual) 24 (19.3-51.7) % Monocytes (Manual) 9 (4.7-12.5) % Toxic Granulation 1+ Platelet Estimate NORMAL (NORMAL) RBC Morphology NORMAL Sodium 134 L (135-145) mmol/L Potassium 4.9 (3.5-5.1) mmol/L Chloride 103 (98-107) mmol/L Carbon Dioxide 25 (22-30) mmol/L Anion Gap 10.5 (5-15) MEQ/L BUN 20 H (7-17) mg/dL Creatinine 0.82 (0.52-1.04) mg/dL Estimated GFR 79.3 ML/MIN Glucose 88 (74-106) mg/dL Calcium 9.4 (8.4-10.2) mg/dL Total Bilirubin 0.10 L (0.2-1.3) mg/dL AST 17 (14-36) U/L ALT 11 (0-35) U/L Alkaline Phosphatase 54 (38-126) U/L Troponin I < 0.012 (0.000-0.033) ng/mL Serum Total Protein 6.7 (6.3-8.2) g/dL Albumin 3.9 (3.5-5.0) g/dL Triglycerides (30-150) mg/dL Cholesterol (50-200) mg/dL LDL Cholesterol (30-100) mg/dL HDL Cholesterol (40-60) mg/dL Heart Disease Risk Ratio 25-OH Vitamin D Total (30-100) ng/mL TSH 3rd Generation (0.470-4.680) mIU/L 01/19/25 Range/Units 05:13 WBC (3.98-10.04) x10^3/uL RBC (3.93-5.22) x10^6/uL Hgb (11.2-15.7) g/dL Hct (34.1-44.9) % MCV (79.4-94.8) fL MCH (25.6-32.2) pg MCHC (32.2-35.5) g/dL RDW (11.7-14.4) % Plt Count (182-369) x10^3/uL MPV (9.4-12.3) fL Segmented Neutrophils (34.0-71.1) % Lymphocytes (Manual) (19.3-51.7) % Monocytes (Manual) (4.7-12.5) % Toxic Granulation Platelet Estimate (NORMAL) RBC Morphology Sodium (135-145) mmol/L Potassium (3.5-5.1) mmol/L Chloride (98-107) mmol/L Carbon Dioxide (22-30) mmol/L Anion Gap (5-15) MEQ/L BUN (7-17) mg/dL Creatinine (0.52-1.04) mg/dL Estimated GFR ML/MIN Glucose (74-106) mg/dL Calcium (8.4-10.2) mg/dL Total Bilirubin (0.2-1.3) mg/dL AST (14-36) U/L ALT (0-35) U/L Alkaline Phosphatase (38-126) U/L Troponin I (0.000-0.033) ng/mL Serum Total Protein (6.3-8.2) g/dL Albumin (3.5-5.0) g/dL Triglycerides 233 H (30-150) mg/dL Cholesterol 179 (50-200) mg/dL LDL Cholesterol 67 (30-100) mg/dL HDL Cholesterol 61 H (40-60) mg/dL Heart Disease Risk Ratio 3.0 25-OH Vitamin D Total (30-100) ng/mL TSH 3rd Generation (0.470-4.680) mIU/L - Radiology Exams Ordered Rad Exams-Entire Visit: Radiology Procedures Category Date Time Status CHEST 1 VIEW (PORTABLE) Stat Exams 01/18/25 11:58 Completed ECHO W/2D AND DOPPLER [US] Stat Exams 01/18/25 14:34 Taken - Procedures and Test Procedures and Tests throughout Hospitalization: Therapy Orders & Screens 01/18/25 14:55 EKG REPEAT IN AM Comment: Diagnosis: Chest pain, acute coronary syndrome Discharge Exam General Appearance: no apparent distress Neurologic Exam: alert, oriented x 3, cooperative Eye Exam: PERRL Ears, Nose, Throat Exam: normal ENT inspection Neck Exam: normal inspection Respiratory Exam: normal breath sounds, lungs clear Cardiovascular Exam: regular rate/rhythm, normal heart sounds Gastrointestinal/Abdomen Exam: soft, normal bowel sounds Pelvic Exam: deferred Rectal Exam: deferred Back Exam: normal inspection Extremity Exam: normal inspection Skin Exam: normal color Final Diagnosis/Problem List - Final Discharge Diagnosis/Problem (1) Chest pain Current Visit: Yes Status: Acute Assessment & Plan: Negative ischemic workup (troponins, EKGs, BNP, CXR). Continue outpatient antianginal therapy. Cardiology follow-up for stress test. Strict return precautions. Code(s): R07.9 - CHEST PAIN, UNSPECIFIED (2) Leukocytosis Current Visit: Yes Status: Acute Assessment & Plan: WBC 16.5, now at 13.3 afebrile, infectious workup negative.- patient states that she has been on steroids which may be the cause Recheck CBC outpatient. Code(s): D72.829 - ELEVATED WHITE BLOOD CELL COUNT, UNSPECIFIED (3) Muscle cramps Current Visit: Yes Status: Acute Assessment & Plan: Electrolytes normal. Initiating trial of magnesium oxide and vitamin B complex for 46 weeks. Hotel Clerk on hydration, nightly stretching. Consider neuropathic agents (gabapentin or pregabalin) if persistent and symptomatic. Code(s): R25.2 - CRAMP AND SPASM (4) Carotid stenosis Current Visit: Yes Status: Acute Assessment & Plan: Continue risk factor modification. Outpatient vascular/cardiology follow-up. Code(s): I65.29 - OCCLUSION AND STENOSIS OF UNSPECIFIED CAROTID ARTERY (5) HTN (hypertension) Current Visit: Yes Status: Acute Assessment & Plan: Continue home antihypertensives. Code(s): I10 - ESSENTIAL (PRIMARY) HYPERTENSION (6) Angina at rest Current Visit: Yes Status: Acute Assessment & Plan: Continue isosorbide. Monitor for recurrence Code(s): I20.89 - OTHER FORMS OF ANGINA PECTORIS (7) GERD (gastroesophageal reflux disease) Current Visit: Yes Status: Acute Assessment & Plan: Continue PPI. Code(s): K21.9 - GASTRO-ESOPHAGEAL REFLUX DISEASE WITHOUT ESOPHAGITIS (8) Fibromyalgia Current Visit: Yes Status: Acute Assessment & Plan: Continue symptomatic regimen. - Discharge Discharge Date: 01/19/25 Disposition: Home, Self-Care Condition: Stable Prescriptions: New Magnesium Oxide 400 mg [Mag-Ox 400] 400 mg PO DAILY 30 Days #30 tablet Vitamin B Complex 1 each PO DAILY 30 Days #30 tablet Continue Isosorbide Mononitrate 30 mg [Imdur 30 MG] 15 mg PO DAILY estradioL [Estradiol] 1 gm VAG DIRECTIONS UNKNOWN estradioL [Estradiol] 1 mg PO DAILY Spironolactone 50 mg PO BID Loratadine [Allergy Relief] 10 mg PO HS Lansoprazole 15 mg PO DAILY PRN PRN PRN Reason: Stomach Upset Hypromellose [Systane Gel] 10 gm OP HS Bimatoprost 0.01% [Lumigan 0.01% 2.5 ml] 2.5 ml OP HS Aspirin 81 mg PO DAILY Instructions: Chest pain - Discharge instructions Follow up with: BILLY HORN [CONSULTING PHYSICIAN, CARDIOLOGY] - Office will call patient Referral Note: Office will call patient with appointment JACQUELIN CONTRERAS NP [Primary Care Provider, [facility]] - 01/26/25 10:00 am Forms: Discharge Instructions
== END 2025-01-19 14:26 | disposition home or self-care (01) ==
LOC: ED 09:41 → MED SURG 13:34
PROVIDERS: ADMIT Internal Medicine; ATTEND Internal Medicine
DX: R07.9 Chest pain, unspecified (principal); I10 Essential (primary) hypertension; E78.5 Hyperlipidemia, unspecified; K21.9 Gastro-esophageal reflux disease without esophagitis; R42 Dizziness and giddiness; R11.0 Nausea; R60.0 Localized edema; D72.829 Elevated white blood cell count, unspecified; R25.2 Cramp and spasm; I65.29 Occlusion and stenosis of unspecified carotid artery; I20.89 Other forms of angina pectoris; M79.7 Fibromyalgia; Z79.899 Other long term (current) drug therapy
CPT/HCPCS: 36415; 71045; 80053; 80061; 81001; 82306; 83721; 83735; 83880; 84443; 84484; 85025; 85379; 87637; 93005; 93041; 93268; 93306; 94760; 96365; 99285; G0378; Q3014

== ENCOUNTER 2025-03-03 13:16 | Day surgery (SDC) | payer MEDICARE, OTHER ==
[2025-03-03] MEDS ORDERED: Sodium Chloride 0.9(Preservative Free) 10 ML IJ ONE (13:17)
[2025-03-03] MEDS ORDERED: LIDOCAINE HCL 1% 50 MG/5 ML VL IJ ONE (13:17)
[2025-03-03] MEDS ORDERED: methylPREDNISolone acetate IM ONE (13:17)
[2025-03-03] MEDS ORDERED: propofoL IV ONE (14:28)
[2025-03-03] MEDS ORDERED: Xylocaine-Mpf 2% 5 Ml Vial ONE (14:33)
[2025-03-03] MEDS ORDERED: Lactated Ringers 1,000 ML IV ONE (14:58)
--- NOTE | 2025-03-03 16:37 | XRAY ---
Indication: Lumbar CRYSTAL. Intraoperative fluoroscopy provided for 16 seconds. 3 digital spot image submitted for interpretation demonstrates posterior needle tip projecting posterior to I believe L2 vertebral body. Small amount of contrast injected for needle tip placement. Correlate with intraoperative findings/report.
--- NOTE | 2025-03-03 17:00 | XRAY ---
16 seconds of fluoroscopy was used in surgery for a lumbar CRYSTAL.
== END 2025-03-03 15:20 | disposition home or self-care (01) ==
LOC: SDC-PAIN 13:16
PROVIDERS: ATTEND Psychiatry & Neurology Pain Medicine
DX: M54.16 Radiculopathy, lumbar region (principal)